=== PATIENT | female | born 2000 | race Caucasian/White ===

== ENCOUNTER 2023-11-30 07:13 | Outpatient (CLI) | payer OTHER, SELFPAY | END 2023-11-30 07:14 | disposition home or self-care (01) | DX: Z00.8 Encounter for other general examination (principal) | CPT/HCPCS: 36415; 99001 ==

== ENCOUNTER 2025-07-15 11:07 | Outpatient (CLI) | payer BC, SELFPAY | END 2025-07-15 11:08 | disposition home or self-care (01) | LOC: AMB 07-18 13:11 | PROVIDERS: Visit Provider Emergency Medicine | DX: R56.9 Unspecified convulsions (principal) | CPT/HCPCS: A0425; A0429 ==

== ENCOUNTER 2025-07-15 11:34 | Emergency (ER) | payer BC, SELFPAY ==
--- OUTSIDE RECORDS SUMMARY | 2025-06-07 08:50 | XMS_ITS | Encounter Summary ---
Author Organization [facility] Address [address] [place] [address] Care Team Providers Care Ornamental Metal Worker Name Role Phone Charito Roman DO Primary Care Provider [phone] Reason for Referral * MRI/CAT Scan (Routine) - Closed Specialty Diagnoses / Procedures Referred By Contac t Referred To Contact Radiology Diagnoses Injury of left knee, initial encounter Procedures MRI Knee WO Contrast Left Clara Rocha MD [address] [place] [address] Referral ID Status Reason Start Date Expiration Date Visits Re quested Visits Authorized [id number] Closed 06/08/2025 10/02/2025 1 1 * Diagnostic (Emergency) - Closed Specialty Diagnoses / Procedures Referred By Contac t Referred To Contact Radiology Diagnoses Chronic pain of left knee Procedures Xray Knee 1 or 2 Views Left Clara Rocha MD [address] [place] [id number] Referral ID Status Reason Start Date Expiration Date Visits Re quested Visits Authorized [id number] Closed 06/07/2025 06/07/2026 1 1 * Diagnostic (Emergency) - Closed Specialty Diagnoses / Procedures Referred By Contac t Referred To Contact Radiology Diagnoses Chronic pain of left knee Procedures Xray Knees Bilateral AP Standing Clara Rocha MD [address] [place] [place], [place] [id number] Referral ID Status Reason Start Date Expiration Date Visits Re quested Visits Authorized [id number] Closed 06/07/2025 06/07/2026 1 1 Reason for Visit * Reason Comments Knee Pain LEFT KNEE PAIN Encounter Details Date Type Department Care Team (Late st Contact Info) Description 06/07/2025 8:50 AM CDT Office Visit [facility] at [facility], Orthopedics [address] [place] [address] Clara Rocha MD [address] [address] Chronic pain of left knee (Primary Dx); Injury of left knee, initial encounter Social History Tobacco Use Types Packs/Day Years Used Date Smoking Tobacco: Never Smokeless Tobacco: Never Tobacco Cessation:Counseling Given: Not Answered Comments:no smokers Alcohol Use Standard Drinks/Week Comments Yes 0 (1 standard drink = 0.6 oz pur e alcohol) Sex and Gender Information Value Date Recorded Sex Assigned at Not on file Gender Identity Not on file Sexual Orientation Not on file documented as of this encounter Last Filed Vital Signs Vital Sign Reading Time Taken Comments Blood Pressure - - Pulse - - Temperature - - Respiratory Rate - - Oxygen Saturation - - Inhaled Oxygen Concentration - - Weight 73.5 kg (162 lb) 06/07/2025 8:30 AM CDT Height 162.6 cm (5' 4) 06/07/2025 8:30 AM CDT Body Mass Index 27.81 06/07/2025 8:30 AM CDT documented in this encounter Patient Instructions * Patient Instructions* Leanna Cheek - 06/07/2025 8:50 AM CDT Sara Polk, On behalf of my care team, I would like to thank you for entrusting us with your care today. It is our goal to provide you and your family with excellent care. You may be receiving an e-mail survey. If we are not meeting the goal of excellent or a rating of 9 or 10, please let us know how we can improve your experience. Once again, thank you. If you would like to comment on the care given to you today please call [phone]. Nurse: JM Zamudio Licensed Batch Freezer Operator: Carla Rocha [email or web address] Please allow 48-72 hours for prescription refill requests. documented in this encounter Progress Notes * Clara Rocha MD - 06/07/2025 8:50 AM CDT Chief Complain: Left knee pain. History of Present Illness: Sara is here today for left knee pain. Sara did sustain an injury on her left knee and has had pain for several weeks. The pain is located lateral. She describesthe symptoms as aching and sharp. Symptoms improve with rest. The symptoms are worse with activity.The knee has not given out or felt unstable. Sara cannot bend and straighten the knee fully. She is active in soccer. Treatment to date has been ice, heat, Tylenol, NSAID's, without significant relief. She is reporting clicking and popping. The patients history form was examined and scanned into the chart. Physical Examination: The patient is an age appropiate well norished, well developed female in no acute distress. Patient is alert and oriented times 3. Left leg shows normal alignment. Skin is normal . Neuro examination is normal. Vascular exam shows normal. Knee Effusion: 2+ Ecchymosis: none Knee ROM: 0 to 100 degrees without subpatellar crepitance. Patella: Patella does track normally. Patellar apprehension test: negative Patellar compression test: negative Tenderness: lateral joint line Stability: Kendal's test: negative Posterior drawer: negative Medial collateral ligament: negative Lateral collateral ligament: negative Kristin's Test: positive with joint line tenderness Sensation: intact to light touch Pulses: normal DP and PT pulses The right knee for comparison shows normal alignment . Skin is intact. Neurovascular exam intact. Capillary refill is less than 3 seconds. Knee is stable on exam in varus/valgus stress and anterior/posterior stress. Range of motion is full. There is no joint line pain or effusion. Strength is 5/5 in flexion and extention. There is no patellar crepitus. Negative patellar apprehension sign. The patella tracks normally X-rays: 4 views of the knee demonstrate no remarkable findings. Assessment: Assessment left knee lateral joint line pain and swelling Plan: Plan MRI discussed and ordered to left knee. Follow up: after MRI * Clara Rocha MD - 06/07/2025 8:50 AM CDT Chief Complain: Left knee pain. History of Present Illness: Sara is here today for left knee pain. Sara did sustain an injury on her left knee and has had pain for several months. The pain is located lateral. She describes the symptoms as aching and sharp. Symptoms improve with rest. The symptoms are worse with activity. The knee has not given out or felt unstable. Sara cannot bend and straighten the knee fully. She is active in soccer. Treatment to date has been ice, heat, Tylenol, NSAID's, without significantrelief. She is reporting clicking and popping. The patients history form was examined and scanned into the chart. Physical Examination: The patient is an age appropiate well norished, well developed female in no acute distress. Patient is alert and oriented times 3. Left leg shows normal alignment. Skin is normal . Neuro examination is normal. Vascular exam shows normal. Knee Effusion: 2+ Ecchymosis: none Knee ROM: 0 to 110 degrees without subpatellar crepitance. Patella: Patella does track normally. Patellar apprehension test: negative Patellar compression test: negative Tenderness: lateral joint line Stability: Kendal's test: negative Posterior drawer: negative Medial collateral ligament: negative Lateral collateral ligament: negative Kristin's Test: positive with joint line tenderness Sensation: intact to light touch Pulses: normal DP and PT pulses The right knee for comparison shows normal alignment . Skin is intact. Neurovascular exam intact. Capillary refill is less than 3 seconds. Knee is stable on exam in varus/valgus stress and anterior/posterior stress. Range of motion is full. There is no joint line pain or effusion. Strength is 5/5 in flexion and extention. There is no patellar crepitus. Negative patellar apprehension sign. The patella tracks normally X-rays: 4 views of the knee demonstrate no remarkable findings. Assessment: Assessment lateral joint line pain and swelling Plan: Plan MRI discussed and ordered to left knee. Follow up: after MRI documented in this encounter Miscellaneous Notes * Addendum Note - Jenae Crockett RN - 06/07/2025 8:50 AM CDTAddended by: JENAE CROCKETT on: 06/08/2025 10:59 AM Modules accepted: Orders documented in this encounter Plan of Treatment Not on file documented as of this encounter Results * MRI Knee WO Contrast Left (07/02/2025 8:10 AM CDT) Anatomical Region Laterality Modality Knee Left Magnetic Resonan ce 07/04/2025 8:27 AM CDT Impressions 07/04/2025 8:31 AM CDT IMPRESSION: 1. Highly equivocal tear of the medial meniscal posterior horn as above 2. Minimal edema of the suprapatellar fat suggesting impingement and question of a thin medial plica 3. Question of subtle patellar chondromalacia as above. Electronically signed by: Kristal Black MD 07/04/2025 08:31 AM CDT RP Narrative 07/04/2025 8:31 AM CDT PROCEDURE: MRI LEFT KNEE WITHOUT CONTRAST TECHNIQUE: Magnetic resonance imaging of the LEFT knee was performed using standard pulse sequences. CPT 70046 HISTORY: eval for lateral meniscus tear COMPARISONS: 02/13/2015 radiography. FINDINGS: ACL: Intact; PCL: Intact MCL: Intact ; Biceps femoris tendon: Intact Fibular collateral ligament: Intact Iliotibial band: Intact Medial meniscus: Mild intrasubstance intermediate signal of the posterior horn could be residual vascularity in a fairly young patient will mild degenerative signal; however there may be a subtle undersurface tear of the posterior horn as suggested on series 6 image 26-this is equivocal meniscus is otherwise intact Lateral meniscus: Intact Extensor mechanism: Intact; minimal anterior subcutaneous edema; minimal edema of the suprapatellar fat suggesting impingement and question of a thin medial plica Joint effusion:Small amount of fluid Popliteal cyst: Collapsed Patellofemoral cartilage:Question subtle thinning of the lower most lateral patellar facet cartilage and maintained trochlear cartilage Medial compartment cartilage: Maintained Lateral compartment cartilage: Maintained Marrow signal: Normal; Muscles:Normal; Imaged sciatic nerve: Normal Procedure Note Kristal Black MD - 07/04/2025 PROCEDURE: MRI LEFT KNEE WITHOUT CONTRAST TECHNIQUE: Magnetic resonance imaging of the LEFT knee was performed usingstandard pulse sequences. CPT 81149 HISTORY: eval for lateral meniscus tear COMPARISONS: 02/13/2015 radiography. FINDINGS: ACL: Intact; PCL: Intact MCL: Intact ; Biceps femoris tendon: Intact Fibular collateral ligament: Intact Iliotibial band: Intact Medial meniscus: Mild intrasubstance intermediate signal of the posteriorhorn could be residual vascularity in a fairly young patient will milddegenerative signal; however there may be a subtle undersurface tear ofthe posterior horn as suggested on series 6 image 26-this is equivocal meniscus is otherwise intact Lateral meniscus: Intact Extensor mechanism: Intact; minimal anterior subcutaneous edema; minimaledema of the suprapatellar fat suggesting impingement and question of athin medial plica Joint effusion:Small amount of fluid Popliteal cyst: Collapsed Patellofemoral cartilage:Question subtle thinning of the lower mostlateral patellar facet cartilage and maintained trochlear cartilage Medial compartment cartilage: Maintained Lateral compartment cartilage: Maintained Marrow signal: Normal; Muscles:Normal; Imaged sciatic nerve: Normal IMPRESSION: IMPRESSION: 1. Highly equivocal tear of the medial meniscal posterior horn as above 2. Minimal edema of the suprapatellar fat suggesting impingement andquestion of a thin medial plica 3. Question of subtle patellar chondromalacia as above. Electronically signed by: Kristal Black MD 07/04/2025 08:31 AM CDT RPWorkstation: [id number] Clara Rocha MD IMG MRI ORDERABLES * Xray Knees Bilateral AP Standing (06/07/2025 9:44 AM CDT) Anatomical Region Laterality Modality Knee Bilateral Radiographic Sharifa ging 06/11/2025 7:56 AM CDT Impressions 06/11/2025 7:57 AM CDT IMPRESSION: 1. No acute fracture. No other acute osseous abnormality. Electronically signed by: Sergio Hazel MD 06/11/2025 07:57 AM CDT RP Narrative 06/11/2025 7:57 AM CDT HISTORY: Pain FINDINGS: 2 views of the left knee and AP standing views of bilateral knees provided. No significant knee joint effusion. Joint compartments are maintained. No acute fracture, dislocation, or other acute osseous abnormality is demonstrated. Procedure Note Sergio Hazel MD - 06/11/2025 HISTORY: Pain FINDINGS: 2 views of the left knee and AP standing views of bilateral kneesprovided. No significant knee joint effusion. Joint compartments aremaintained. No acute fracture, dislocation, or other acute osseous abnormality isdemonstrated. IMPRESSION: 1. No acute fracture. No other acute osseous abnormality. Electronically signed by: Sergio Hazel MD 06/11/2025 07:57 AM CDT RPWorkstation: [id number] Clara Rocha MD IMG DIAGNOSTIC IMAGI NG ORDERABLES * Xray Knee 1 or 2 Views Left (06/07/2025 9:43 AM CDT) Anatomical Region Laterality Modality Knee Left Radiographic Sharifa ging 06/11/2025 7:56 AM CDT Impressions 06/11/2025 7:57 AM CDT IMPRESSION: 1. No acute fracture. No other acute osseous abnormality. Electronically signed by: Sergio Hazel MD 06/11/2025 07:57 AM CDT RP Narrative 06/11/2025 7:57 AM CDT HISTORY: Pain FINDINGS: 2 views of the left knee and AP standing views of bilateral knees provided. No significant knee joint effusion. Joint compartments are maintained. No acute fracture, dislocation, or other acute osseous abnormality is demonstrated. Procedure Note Sergio Hazel MD - 06/11/2025 HISTORY: Pain FINDINGS: 2 views of the left knee and AP standing views of bilateral kneesprovided. No significant knee joint effusion. Joint compartments aremaintained. No acute fracture, dislocation, or other acute osseous abnormality isdemonstrated. IMPRESSION: 1. No acute fracture. No other acute osseous abnormality. Electronically signed by: Sergio Hazel MD 06/11/2025 07:57 AM CDT RPWorkstation: [id number] Clara Rocha MD IMG DIAGNOSTIC IMAGI NG ORDERABLES documented in this encounter Visit Diagnoses Diagnosis Chronic pain of left knee- Primary Injury of left knee, initial encounter Chronic pain of left knee Chronic pain of left knee Injury of left knee, initial encounter documented in this encounter Additional Health Concerns Assessment Noted Time PHQ-9 Depression Total Score: 0 06/07/20 9:47 AM CDT PHQ-2 Depression Total Score: 0 06/07/20 9:47 AM CDT documented as of this encounter Care Teams Ornamental Metal Worker Relationship Specialty Start Date End Date Charito Roman DO [address] [place] [address] PCP - General Family Medicine 05/03/24 documented as of this encounter
--- OUTSIDE RECORDS SUMMARY | 2025-06-07 09:10 | XMS_ITS | Encounter Summary ---
Author Organization [facility] Address [address] [place] [address] Care Team Providers Care Stock Sheets Cleaner Inspector Name Role Phone Charito Roman DO Primary Care Provider [phone] Reason for Visit * Diagnostic (Emergency) - Closed Specialty Diagnoses / Procedures Referred By Parviz garber Referred To Contact Radiology Diagnoses Chronic pain of left knee Procedures Xray Knee 1 or 2 Views Left Clara Rocha MD [address] [address] Referral ID Status Reason Start Date Expiration Date Visits Re quested Visits Authorized [id number] Closed 06/07/2025 06/07/2026 1 1 Encounter Details Date Type Department Care Team (Latest Contact Info) Description 06/07/2025 9:10 AM CDT Ancillary Procedure [facility] [place] [id number] [place] [address] Clara Rocha MD [address] [place] [id number] Chronic pain of left knee Social History Tobacco Use Types Packs/Day Years Used Date Smoking Tobacco: Never Smokeless Tobacco: Never Comments:no smokers Alcohol Use Standard Drinks/Week Comments Yes 0 (1 standard drink = 0.6 oz pur e alcohol) Sex and Gender Information Value Date Recorded Sex Assigned at Not on file Gender Identity Not on file Sexual Orientation Not on file documented as of this encounter Plan of Treatment Not on file documented as of this encounter Procedures Procedure Name Priority Date/Time Associated Diagnosis Comments XRAY KNEE 1 OR 2 VIEWS LEFT STAT 06/07/2025 9:43 AM CDT Chronic pain of left knee documented in this encounter Results * Xray Knee 1 or 2 Views [...] Hazel MD 06/11/2025 07:57 AM CDT RPWorkstation: [id number] Clara Rocha MD IMG DIAGNOSTIC IMAGI NG ORDERABLES documented in this encounter Visit Diagnoses Diagnosis Chronic pain of left knee documented in this encounter Additional Health Concerns Assessment Noted Time PHQ-9 Depression Total Score: 0 06/07/20 9:47 AM CDT PHQ-2 Depression Total Score: 0 06/07/20 9:47 AM CDT documented as of this encounter Care Teams Stock Sheets Cleaner Inspector Relationship Specialty Start Date End Date Charito Roman DO [address] [place] [address] PCP - General Family Medicine 05/03/24 documented as of this encounter
--- OUTSIDE RECORDS SUMMARY | 2025-06-07 09:20 | XMS_ITS | Encounter Summary ---
Author Organization [facility] Address [address] [place] [address] Care Team Providers Care Olericulture Professor Name Role Phone Charito Roman DO Primary Care Provider [phone] Reason for Visit * Diagnostic (Emergency) - Closed Specialty Diagnoses / Procedures Referred By Parviz garber Referred To Contact Radiology Diagnoses Chronic pain of left knee Procedures Xray Knees Bilateral AP Standing Clara Rocha MD [address] [address] Referral ID Status Reason Start Date Expiration Date Visits Re quested Visits Authorized [id number] Closed 06/07/2025 06/07/2026 1 1 Encounter Details Date Type Department Care Team (Latest Contact Info) Description 06/07/2025 9:20 AM CDT Ancillary Procedure [facility] [place] [id number] [place] [address] Clara Rocha MD [address] [id number] Chronic pain of left knee Social History [...] Name Priority Date/Time Associated Diagnosis Comments XRAY KNEES BILATERAL AP STANDING STAT 06/07/2025 9:44 AM CDT Chronic pain of left knee documented in this encounter Results * Xray Knees Bilateral AP Standing (06/07/2025 [...] Hazel MD 06/11/2025 07:57 AM CDT RPWorkstation: [id number] Clara Rocha MD IMG DIAGNOSTIC IMAGI NG ORDERABLES documented in this encounter Visit Diagnoses Diagnosis Chronic pain of left knee documented in this encounter Additional Health Concerns Assessment Noted Time PHQ-9 Depression Total Score: 0 06/07/20 9:47 AM CDT PHQ-2 Depression Total Score: 0 06/07/20 9:47 AM CDT documented as of this encounter Care Teams Olericulture Professor Relationship Specialty Start Date End Date Charito Roman DO [address] [place] [address] PCP - General Family Medicine 05/03/24 documented as of this encounter
--- OUTSIDE RECORDS SUMMARY | 2025-07-02 07:18 | XMS_ITS | Encounter Summary ---
Author Organization [facility] Address [address] [place] [address] Care Team Providers Care Press Tender Smoke Signal Name Role Phone Charito Roman DO Primary Care Provider [phone] Reason for Referral * MRI/CAT Scan (Routine) - Closed Specialty Diagnoses / Procedures Referred By Contac shirlene Referred To Contact Radiology Diagnoses Injury of left knee, initial encounter Procedures MRI Knee WO Contrast Left Clara Rocha MD [address] [place] [address] Referral ID Status Reason Start Date Expiration Date Visits Re quested Visits Authorized [id number] Closed 06/08/2025 10/02/2025 1 1 Reason for Visit * MRI/CAT Scan (Routine) - Closed Specialty Diagnoses / Procedures Referred By Parviz garber Referred To Contact Radiology Diagnoses Injury of left knee, initial encounter Procedures MRI Knee WO Contrast Left Clara Rocha MD [address] [place] [address] Referral ID Status Reason Start Date Expiration Date Visits Re quested Visits Authorized [id number] Closed 06/08/2025 10/02/2025 1 1 Encounter Details Date Type Department Care Team (Latest Contact Info) Description 07/02/2025 7:18 AM CDT - 07/02/2025 11:59 PM CDT Hospital Encounter [facility], Imaging [address] [place] [id number] Clara Rocha MD [address] [address] Injury of left knee, initial encounter Discharge Disposition: Home or Self Care Social History Tobacco Use Types Packs/Day Years [...] Procedure Name Priority Date/Time Associated Diagnosis Comments MRI KNEE WO CONTRAST LEFT Routine 07/02/2025 8:10 AM CDT Injury of left knee, initial encounter documented in this encounter Results * MRI Knee WO [...] was performed using standard pulse sequences. CPT 73316 HISTORY: eval for lateral meniscus tear COMPARISONS: [...] knee was performed usingstandard pulse sequences. CPT 04472 HISTORY: eval for lateral meniscus tear COMPARISONS: [...] Black MD 07/04/2025 08:31 AM CDT RPWorkstation: [id number] Clara Rocha MD IM MRI ORDERABLES documented in this encounter Visit Diagnoses Diagnosis Injury of left knee, initial encounter documented in this encounter Additional Health Concerns Assessment Noted Time PHQ-9 Depression Total Score: 0 06/07/20 9:47 AM CDT PHQ-2 Depression Total Score: 0 06/07/20 9:47 AM CDT documented as of this encounter Care Teams Press Tender Smoke Signal Relationship Specialty Start Date End Date Charito Roman DO [address] [place] [address] PCP - General Family Medicine 05/03/24 documented as of this encounter
--- OUTSIDE RECORDS SUMMARY | 2025-07-05 10:30 | XMS_ITS | Encounter Summary ---
Author Organization [facility] Address [address] [place] [address] Care Team Providers Care Shed Hand Name Role Phone Charito Roman DO Primary Care Provider [phone] Reason for Referral * Physical Therapy (Routine) - Pending Review Specialty Diagnoses / Procedures Referred By Parviz garber Referred To Contact Rehabilitation Diagnoses Chronic pain of left knee Procedures PT and OT Evaluate and Treat Clara Rocha MD [address] [facility] [address] [address] [facility] [address] [place] [address] Referral ID Status Reason Start Date Expiration Date V isits Requested Visits Authorized [id number] Pending Review 07/05/2025 07/05/2026 99 99 Reason for Visit * Reason Comments Knee Pain Left knee pain Encounter Details Date Type Department Care Team (Late st Contact Info) Description 07/05/2025 10:30 AM CDT Office Visit [facility] at [facility], Orthopedics [address] [place], [place] [phone] Clara Rocha MD [address] [facility] [address] [place], [place] [phone] Chronic pain of left knee (Primary Dx) Social History Tobacco Use Types Packs/Day Years [...] Taken Comments Blood Pressure - - Pulse 54 07/05/2025 10:37 AM CDT Temperature - - Respiratory Rate - - Oxygen Saturation 99% 07/05/2025 10:37 AM CDT Inhaled Oxygen Concentration - - Weight 73.5 kg (162 lb) 07/05/2025 10:37 AM CDT Height 162.6 cm (5' 4) 07/05/2025 10:37 AM CDT Body Mass Index 27.81 07/05/2025 10:37 AM CDT documented in this encounter Patient Instructions * Patient Instructions* Prisca Angeles - 07/05/2025 10:30 AM CDT Sara Chacon Jam, On behalf of my care team, I [...] care given to you today please call [phone]. Nurse: JM Zamudio Licensed Disability Benefits Specialist: Carla Rocha [email or web address] Please allow 48-72 hours for prescription refill requests. documented in this encounter Progress Notes * Clara Rocha MD - 07/05/2025 10:30 AM CDT Chief Complaint: Left knee pain History of Present Illness: Sara presents today for followup of left knee. The MRI showed possible tear . I spent 25 minutes with the patient in a face to face conversation. All of the time was spent discussing the results of the MRI and the treatment plan. Assessment and Plan: Left knee possible medial mensicus tear. She does have issues with low back pain and radiculopathy. Physical Therapy discussed and ordered for lumbar spine. Medrol dose packet and flexeril discussed and ordered. She will follow up as needed with me. documented in this encounter Plan of Treatment Not on file documented as of this encounter Visit Diagnoses Diagnosis Chronic pain of left knee- Primary documented in this encounter Additional Health Concerns Assessment Noted Time PHQ-9 Depression Total Score: 0 07/05/20 25 10:33 AM CDT PHQ-2 Depression Total Score: 0 07/05/20 25 10:33 AM CDT documented as of this encounter Care Teams Shed Hand Relationship Specialty Start Date End Date Charito Roman DO [address] [place] [address] PCP - General Family Medicine 05/03/24 documented as of this encounter
[2025-07-15] VITALS (15 sets, daily range): BP systolic 138–149; BP diastolic 81–97; PULSE 51–77; RESP 4–22; TEMP 36.6; O2SAT 98–100; BMI 27.5
--- OUTSIDE RECORDS SUMMARY | 2025-07-15 11:36 | XMS_ITS | Clinical Summary ---
Author Organization [facility] Address [address] [place] [id number] Care Team Providers Care Ingot Caster Name Role Phone Jaya Oakes MD Primary Care Provider Unavaila ble Social History Tobacco Use Types Packs/Day Years Used Date Smoking Tobacco: Never Assessed Inadequate Housing Answer Date Recorded Social Determinants: Housing (Overall Score Help er) 0 05/04/2022 Comments Unknown Sex and Gender Information Value Date Recorded Sex Assigned at Not on file Legal Sex Female 10:37 AM CDT Gender Identity Not on file Sexual Orientation Not on file Plan of Treatment Health Maintenance Due Date Last Done Comments Depression Screening 2013 Chlamydia and Gonorrhea Screening (if sexually active) 2019 Meningococcal Serogroup B Vaccine (2 of 2 - Bexsero SCDM 2-dose series) 12/17/2019 06/16/2019 DTaP/Tdap/Td Vaccine (7 - Td or Tdap) 05/16/2022 05/16/2012, 06/03/2006, 11/06/2002, Additional history exists COVID-19 Vaccine ( season) 2024 11/05/2021, 04/28/2021 Influenza Vaccine (#1) 2025 , 07/31/2020, 12/08/2002, Additional history exists Pneumococcal Vaccine 0-49 Aged Out 2001, 2001, 2001, Additional history exists No longer eligible based on patient's age to complete this topic Hepatitis B Vaccine Completed 11/06/2002, 2001, 2001 Varicella Vaccine Completed 04/23/2010, 05/08/2002 HPV Vaccine Completed 01/10/2014, 0902/2012, 05/16/2012 Hepatitis A Vaccine Completed 01/10/2014, 07/02/201 2 Meningococcal Vaccine Completed 06/16/2019 , 01/10/2014, 07/19/2012, Additional history exists Care Teams Ingot Caster Relationship Specialty Start Date End Date Jaya Oakes MD PCP - General Pediatrics 05/05/22
--- OUTSIDE RECORDS SUMMARY | 2025-07-15 11:36 | XMS_ITS | Clinical Summary ---
Author Organization [facility] Address [address] [place] [address] Care Team Providers Care Coffee Urn Attendant Name Role Phone Pcp, No Primary Care Provider Unavailabl e Allergies No known active allergies Medications No known medications Immunizations Immunization Administration Dates Next Due DTaP 06/03/2006, 1,2001,07/06 DTaP-HIB (TriHIBIT) 11/06/2002 HIB HbOC (HibTITER) 2001,2001,2000 Hepatitis A (Peds) 01/10/2014,05/16/2012 Hepatitis B (Peds) 2001,2001 Hepatitis B, Unspecified 11/06/2002 Human Papilloma Virus Vaccine 01/10/2014, 012,05/16/2012 Inactivated Polio Vaccine 06/03/2006,,2001,07/06 Influenza, IIV3 (Age >=3 years) 12/08/2002,11/06 Influenza, IIV4 (=>6mos) MDV 07/31/2020 MENINGOCOCCAL VACCINE 2 VIAL 2MO-55YO (MENVEO) 06/16/2019,01/10/2014,07/19/2012,05/16 MMR 06/03/2006,05/08/2002 Meningococcal B 06/16/2019 Pneumococcal conj 7-Valent (Prevnar 7) 0 05/08/2002,2001,2001,07/06 Polio Virus, Unspecified 11/06/2002,2001,0 2001 Tdap 05/16/2012 Varicella Vaccine 04/23/2010,05/08/2002 Social History Tobacco Use Types Packs/Day Years Used Date Smoking Tobacco: Never Smokeless Tobacco: Never Tobacco Cessation:Counseling Given: Yes Alcohol Use Standard Drinks/Week Comments Not Currently 0 (1 standard drink = 0.6 oz pur e alcohol) Social Connections Answer Date Recorded Frequency of Communication with Friends and Fami ly Not on file 11/15/2021 Financial Resource Strain Answer Date R ecorded Difficulty of Paying Living Expenses Not on file 11/15/2021 Difficulty of Paying Living Expenses Not on file 11/15/2021 Comments No Sex and Gender Information Value Date Recorded Sex Assigned at Not on file 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 Gender Identity Not on file Sexual Orientation Not on file Obstetrics History Last Filed Vital Signs Vital Sign Reading Time Taken Comments Blood Pressure 130/83 02/16/2022 4:21 PM CDT Pulse 49 02/16/2022 4:21 PM CDT Temperature 36.9 C (98.4 F) 02/16/2022 4:17 PM CDT Respiratory Rate - - Oxygen Saturation 98% 02/16/2022 4:21 PM CDT Inhaled Oxygen Concentration - - Weight 80.5 kg (177 lb 6.4 oz) 02/16/2022 4:17 P M CDT Height 166 cm (5' 5.35) 02/16/2022 4:17 PM CDT Body Mass Index 29.2 02/16/2022 4:17 PM CDT Plan of Treatment Health Maintenance Due Date Last Done Comments Depression screening for age 12+ 2013 HIV for age 15-65 2016 Hepatitis C screening for age 18-79 2019 Pap test for age 21-65 2022 Tetanus booster 05/16/2022 05/16/2012 BMI (ht and wt on same day) for age 18+ 02/16/2023 02/16/2022, 03/05/2021 COVID-19 vaccine series (2023- season) 2024 11/05/2021, 04/28/2021 Influenza Vaccine (#1) 2025 0, 12/08/2002, 11/06/2002 Pneumococcal series for age 6-49 Aged Out 05/08/2002, 2001, 2001, Additional history exists No longer eligible based on patient's age to complete this topic Hepatitis B series for 19+ Completed 11/06, 2001, 2001 HPV series for age 9-26 Completed 01/10/20 14, 07/19/2012, 05/16/2012 Insurance [facility] Care Teams Coffee Urn Attendant Relationship Specialty Start Date End Date Pcp, No . PCP - General 03/05/21
--- OUTSIDE RECORDS SUMMARY | 2025-07-15 11:36 | XMS_ITS | Clinical Summary ---
Author Organization [facility] Address [address] [place] [address] Care Team Providers Care Brine Well Operator Name Role Phone Charito Roman DO Primary Care Provider [phone] Allergies No known active allergies Medications Medication Sig Dispensed Refills Start Date End Date Status methylprednisolone (MEDROL DOSEPACK) 4 mg tablet follow package directions 21 tablet 07/05/2025 Active cyclobenzaprine (FLEXERIL) 10 MG tablet Take 1 tablet (10 mg total) by mouth 3 (three) times a day as needed for Muscle spasms for up to 10 days. 30 tablet 07/05/2025 Active Active Problems Problem Noted Date Diagnosed Date Gastroesophageal reflux dise ase, unspecified whether esophagitis present 04/25/2024 No active medical problems 01/10/2014 Resolved Problems Problem Noted Date Diagnosed Date Resolved Date Left knee injury, initial encounter 02/13/2015 06/11/2016 Hamstring strain, left, init ial encounter - Left 02/13/2015 06/11/2016 Encounters Date Type Department Care Team Description 07/05/2025 10:30 AM CDT Office Visit [facility], Orthopedics [address] [place] [address] Clara Rocha MD Chronic pain of left knee (Primary Dx) 07/02/2025 7:18 AM CDT - 07/02/2025 11:59 PM CDT Hospital Encounter [place] [facility], Imaging [address] [place] [address] Clara Rocha MD Injury of left knee, initial encounter Discharge Disposition: Home or Self Care 06/07/2025 9:20 AM CDT Ancillary Procedure [facility] [address] [phone] Clara Rocha MD Chronic pain of left knee 06/07/2025 9:10 AM CDT Ancillary Procedure [facility] [address] [phone] Clara Rocha MD Chronic pain of left knee 06/07/2025 8:50 AM CDT Office Visit [facility], Orthopedics [address] [place] [phone] Clara Rocha MD Chronic pain of left knee (Primary Dx); Injury of left knee, initial encounter from Last 3 Months Immunizations Name Administration Dates Next Due DTaP (Infanrix) 06/03/2006, 1,2001,07/06 DTaP / HiB 11/06/2002 HPV Quadrivalent 01/10/2014,07/19/2012, 2 Hep B, Unspecified Formulation 11/06/2002 Hepatitis A 2 Dose pediatric/adolescent 01/10/2014,05/16/2012 Hepatitis B, Adolescent or Pediatric 2001, 2001 Hib (Hboc) 2001,2001,2001 Influenza Vaccine Quadrivale nt, 0.5ml Single Dose Syringe 01/10/2014(Deferred: Parental Refusal) Influenza Vaccine Trivalent, Multidose Vial 12/08/2002,11/06/2002 MMR 06/03/2006,05/08/2002 Meningococcal B,OMV(2-dose) (Bexsero) 06/16/2019 Meningococcal Conjugate MCV4O (Menveo) 0 06/16/2019,01/10/2014,07/19/2012,05/16 PfizerRoomActuallyBioNT908 Devices COVID-19 Vac cine mRNA (PF) 30 mcg/0.3mL 11/05/2021 Pneumococcal Conjugate 7-Valent 05/08/20,2001,2001,07/06 Polio, Unspecified Formulation 11/06/2002,2000,2001 Poliovirus Inactivated IPV 06/03/2006 Tdap (Adacel, Boostrix) 05/16/2012 Varicella (Varivax) 04/23/2010,05/08/2002 Family History Medical History Relation Name Comments Asthma Brother Allergies Father Hypertension Maternal Grandfather Cancer Maternal Grandmother melonom a Hypertension Maternal Uncle Leukemia Paternal Grandfather Relation Name Status Comments Brother Father Alive Maternal Grandfather Maternal Grandmother Maternal Uncle Mother Alive Paternal Grandfather Social History Tobacco Use Types Packs/Day Years Used Date Smoking Tobacco: Never Smokeless Tobacco: Never Tobacco Cessation:Counseling Given: Not Answered Comments:no smokers Alcohol Use Standard Drinks/Week Comments Yes 0 (1 standard drink = 0.6 oz pur e alcohol) Sex and Gender Information Value Date Recorded Sex Assigned at Not on file Gender Identity Not on file Sexual Orientation Not on file Last Filed Vital Signs Vital Sign Reading Time Taken Comments Blood Pressure 122/68 09/27/2024 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 Pulse 54 07/05/2025 10:37 AM CDT Temperature 36.6 C (97.9 F) 05/03/2024 8:09 AM CDT Respiratory Rate 18 09/27/2024 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 Oxygen Saturation 99% 07/05/2025 10:37 AM CDT Inhaled Oxygen Concentration - - Weight 73.5 kg (162 lb) 07/05/2025 10:37 AM CDT Height 162.6 cm (5' 4) 07/05/2025 10:37 AM CDT Body Mass Index 27.81 07/05/2025 10:37 AM CDT Plan of Treatment Health Maintenance Due Date Last Done Comments BMI COUNSELING 2019 FOLATE SUPPLEMENTATION 2019 HEP C SCREENING 2019 HIV SCREENING 2019 MENINGITIS B VACCINE (2 of 2 - Bexsero SCDM 2-dose series) 12/17/2019 06/16/2019 Pneumococcal Vaccine: Peds (0-5 Yrs) and At-Risk (6-64 Yrs) (1 of 2 - PCV) 2020 05/08/2002, 2001, 2001, Additional history exists DTap/Tdap/Td (7 - Td or Tdap) 05/16/2022, 06/03/2006, 11/06/2002, Additional history exists COVID-19 Vaccine ( - 2023-2 5 season) 2024 10/14/2023, 11/05/2021, 04/28/2021 CHLAMYDIA SCREENING 03/13/2025 03/13/2024, 4 GONORRHEA SCREENING 03/13/2025 03/13/2024, 4 PREVENTIVE HEALTH EXAM 03/13/2025 4, 06/12/2019, 06/11/2016, Additional history exists INFLUENZA VACCINE (#1) 2025 , 07/31/2020, 12/08/2002, Additional history exists Annual Alcohol Screening 07/05/2026 07/05/2025, 02/14 PAP SMEAR 03/13/2027 03/13/2024 RSV Vaccine Patients 60 Year s and Older (1 - 1-dose 75+ series) 2076 HEPATITIS B VACCINE Completed 11/06/2002, 2001, 2001 HIB VACCINES Completed 11/06/2002, 10/16, 2001, Additional history exists MMR VACCINES Completed 06/03/2006, 05/08/2002 VARICELLA VACCINE Completed 04/23/2010, 05/08/2002 HEPATITIS A VACCINE Completed 01/10/2014, 2 HPV VACCINE Completed 01/10/2014, 02/2012, 05/16/2012 MENINGOCOCCAL VACCINE Completed 06/16/2019 , 01/10/2014, 07/19/2012, Additional history exists RSV Immunization Pediatric Patients under 20 months Aged Out No longer eligi ble based on patient's age to complete this topic Procedures Procedure Name Priority Date/Time Associated Diagnosis Comments MRI KNEE WO CONTRAST LEFT Routine 07/02/2025 8:10 AM CDT Injury of left knee, initial encounter XRAY KNEES BILATERAL AP STANDING STAT 06/07/2025 9:44 AM CDT Chronic pain of left knee XRAY KNEE 1 OR 2 VIEWS LEFT STAT 06/07/2025 9:43 AM CDT Chronic pain of left knee GYNECOLOGIC CYTOLOGY Routine 03/13/2024 10:22 AM CDT Cervical smear, as part of routine gynecological examination CHLAMYDIA/GC NAAT Routine 03/13/2024 10: 22 AM CDT Screening for STD (sexually transmitted disease) from Last 3 Months or Most Recently Relevant to Health Maintenance Results * MRI Knee WO Contrast Left [...] Black MD 07/04/2025 08:31 AM CDT RP [facility] 07/04/2025 8:31 AM CDT PROCEDURE: MRI LEFT KNEE WITHOUT CONTRAST TECHNIQUE: Magnetic resonance imaging of the LEFT knee was performed using standard pulse sequences. CPT 56321 HISTORY: eval for lateral meniscus tear COMPARISONS: [...] knee was performed usingstandard pulse sequences. CPT 71020 HISTORY: eval for lateral meniscus tear COMPARISONS: [...] Black MD 07/04/2025 08:31 AM CDT RPWorkstation: [id number] Clara Rocha MD IMG MRI ORDERABLES * [...] Hazel MD 06/11/2025 07:57 AM CDT RPWorkstation: [id number] [address] [facility] NG ORDERABLES * Xray Knee [...] Hazel MD 06/11/2025 07:57 AM CDT RPWorkstation: [id number] Clara Rocha MD [facility] NG ORDERABLES * Gynecologic Cytology (03/13/2024 10:22 AM CDT) Case Report Gynecologic Cytology Case: [id number] Authorizing Provider: Yonatan Taylor MD Collected: 03/13/2024 1022 Ordering Location: [facility] Received: 03/14/2024 1446 [facility] First Screen: Adebayo You CT (ASCP) Specimen: Thin Prep Pap, Cervix, Thin Prep Pap only 03/16/2024 12:31 PM CDT [facility] Cytology Interpretation : Negative for intraepithelial lesion or malignancy 03/16/2024 12:31 PM CDT [facility] Clinical Information: Z01.419 - Cervical smear, as part of routine gynecological examination [ICD-10-CM] 03/16/2024 12:31 PM CDT [facility] Specimen Adequacy: Satisfactory for evaluation 03/16/2024 12:31 PM CDT [facility] Endocervical Cells: Endocervical/Lopez sformation zone component present 03/16/2024 12:31 PM CDT [facility] PAP Disclaimer This Pap has been evaluated with the aid of the ThinPrep Imaging System. The pap smear is a screening test which is subject to both false negative and false positive results evidenced by data published in the medical literature. Your patient's result should be interpreted in this context, together with the patient's history and clinical findings. 03/16/2024 12:31 PM CDT [facility] Brushing SPECIMEN FROM UTERINE CERVIX / Unknown Collection / Unknown 03/13/2024 10:22 AM CDT 03/14/2024 2:46 PM CDT Yonatan Taylor MD PATHOLOGY/CYTOLOGY O RDERABLES [facility] [address] [place], [place] [address] * Chlamydia/GC NAAT (03/13/2024 10:22 AM CDT) Chlamydia NAAT Negative Negative 03/14/2024 1:37 PM CDT [facility] N.gonorrhoeae , NAAT Negative Negative 03/14/2024 1:37 PM CDT [facility] Swab ENDOCERVICAL STRUCTURE / Unknown Collection / Unknown 03/13/2024 10:22 AM CDT 03/13/2024 11:50 AM CDT Narrative [facility] - 03/14/2024 1:37 PM CDT Testing performed via FDA-approved nucleic acid amplification test (NAAT), with modifications for the following sample sources: pharyngeal and rectal. These modifications were developed and its performance characteristics were determined by [facility]. Sources listed have not been cleared by the FDA and these results are for investigational use only. Yonatan Taylor MD MICROBIOLOGY - [facility] AL ORDERABLES [facility] [address] from Last 3 Months or Most Recently Relevant to Health Maintenance Advance Directives * Full Code (Latest Code Status on File) Date Activated Date Inactivated Comments 05/03/2024 8:47 AM 05/03/2024 11:10 AM * Full Code Date Activated Date Inactivated Comments 05/03/2024 8:01 AM 05/03/2024 8:47 AM Care Teams Brine Well Operator Relationship Specialty Start Date End Date Charito Roman DO [address] [place] [address] PCP - General Family Medicine 05/03/24
--- OUTSIDE RECORDS SUMMARY | 2025-07-15 11:36 | XMS_ITS | Clinical Summary ---
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 Gender Identity Not on file Sexual Orientation Not on file Last Filed Vital Signs Vital Sign Reading Time Taken Comments Blood Pressure - - Pulse - - Temperature - - Respiratory Rate - - Oxygen Saturation - - Inhaled Oxygen Concentration - - Weight 70 kg (154 lb 5.2 oz) 12/31/2016 4:48 PM AGED OR DISABLED CARER Height 164.2 cm (5' 4.65) 12/31/2016 4:48 PM CS T Body Mass Index 25.96 12/31/2016 4:48 PM AGED OR DISABLED CARER Plan of Treatment Health Maintenance Due Date Last Done Comments COVID-19 Vaccine (2023-2 5 season) 2024 Pneumococcal Vaccine: Pediat rics (0 to 5 Years) and At-Risk Patients (6 to 64 Years) Aged Out No longer eligi ble based on patient's age to complete this topic [facility] Care Teams Conventions Reservationist Relationship Specialty Start Date End Date Jaya Oakes MD [address] [place], [place] [id number] PCP - General Pediatrics 12/25/16
--- NOTE | 2025-07-15 11:54 | CRLHL7_ITS ---
For Patients: As a result of the Century Cures Act, medical imaging exams and procedure reports are released immediately into your electronic medical record. You may view this report before your referring provider. If you have questions, please contact your health care provider. Indication: New onset seizure. Technique: CT of the head without contrast. Coronal and sagittal reformats. Bone and soft tissue windows. Comparison: No prior studies available for comparison at this institution. Findings: No acute intracranial hemorrhage or extra-axial collection. No evidence of acute cortical infarction. No mass effect or midline shift. Normal cerebral volume. The ventricles are normal in size, shape and contour. There is normal aragon and white matter differentiation. Partially empty sella. The orbital contents are normal. No calvarial fractures. No lytic or sclerotic osseous lesions within the calvarium or skull base. Scalp and other imaged soft tissue structures are normal. Mastoid air cells are clear. Paranasal sinuses are well aerated. Impression: 1. No acute intracranial abnormality. 2. Partially empty morphology of the sella is nonspecific and could represent a normal variant, but is also seen in association with idiopathic intracranial hypertension. Please note that all CT scans at this facility use dose modulation, iterative reconstruction, and/or weight-based dosing when appropriate to reduce radiation dose to as low as reasonably achievable. Dictated by Ash Watson MD @ 07/15/2025 1:36:41 PM (Electronically Signed)
[2025-07-15 12:13] LABS: HCO3 VBG 25 mmol/L (21-28); Lactate* 2.2 mmol/L (0.5-1.9); PCO2 VBG 43 mmHG (40-50); PO2 VBG 50.7 mmHG (25-47); pH VBG 7.371 (7.32-7.43)
[2025-07-15 12:20] LABS: Hematocrit 39.0 % (33.0-51.0); Hemoglobin* 12.5 gm/dL (12.0-16.0); Immature Granulocytes Abs Auto 0.02 K/uL (0.00-0.30); Immature Granulocytes Pct Auto 0.4 %; Lymphocytes Absolute Auto 1.29 K/uL (0.90-2.90); Mean Corpuscular HGB Conc 32 gm/dL (32-36); Mean Corpuscular Hemoglobin 28 pg (26-34); Mean Corpuscular Volume 88 fL (80-100); RDW Coefficient of Variation % 15.4 % (11.5-15.5); Red Blood Count 4.41 m/uL (4.00-5.20); White Blood Count* 4.50 K/uL (4.50-11.00)
--- NOTE | 2025-07-15 12:20 | ED.GENADULT ---
HPI - General Adult General Time Seen by Provider: 12:00 Date Seen: 07/15/25 Chief complaint: Seizure Stated complaint: seizure Time Seen by Provider: 07/15/25 11:54 Source: patient, EMS, RN notes reviewed and other (Friend she was running with is present.) Mode of arrival: EMS History of Present Illness HPI narrative: This 25-year-old female was brought in by EMS from [facility] where she was running, had possible seizure. She is here with her friend whom is her roommate from the [facility], they live in medicine now, are both [employer] graduates. Patient and her friend were 1 mi into a run in the [facility], were conversational. They were in an area where there was a lot of overhead trees, patient felt like the lights were almost Lore like coming in through the canopy of the trees. After that she felt like she could not see 20 ft in front of her, they slow down, her friend had her arm, the patient started to go down, she caught her and got her to the ground. Patient was rigid, rolling some, seemed to be having noisy breathing in almost difficulty breathing. She noted some movement in the arms. She feels she was witnessing a seizure. Patient has never had seizures before. No trauma, friend was able to get her to the ground. It took awhile of calling for help as she did not have her phone, somebody called 911 and it took a while for them to get there. Police noted that the patient was reportedly postictal and confused. Her friend stated when she finally came to, was trying to get up on her knees in arms, she was definitely confused, did not know who she was at [facility]. They have been friends through [employer] and our current roommates. Patient does note about 2 weeks ago she had a back injury, did get methylprednisolone or prednisone and did get cyclobenzaprine. She originally was having difficulty telling me the events and when exactly this happened. Her friend states her back pain during practice for soccer was about 2 weeks ago, she completed the steroid and the muscle relaxant maybe a week ago. Patient otherwise is healthy, has not been ill. As far as alcohol, she did have 2 beers last night, nothing significant. Related Data Home Medications ?Medication ?Instructions ?Recorded ?Confirmed cyclobenzaprine 10 mg tablet 10 mg PO 3XD 07/15/25 07/15/25 methylprednisolone 4 mg tablets in 0 mg PO 07/15/25 a dose pack Allergies Allergy/AdvReac Type Severity Reaction Status Date / Time No Known Drug Allergies Allergy Verified 07/15/25 11:49 Review of Systems Status of ROS: Reports: 6 or more systems reviewed and unremarkable except as noted in History and below Exam Const: Vital Signs, click to edit/add: Vital Signs - 24 hr 07/15/25 11:44 07/15/25 11:54 07/15/25 12:17 Temperature 98 F Pulse Rate 61 Pulse Rate [Right Pulse Oximeter] 77 Respiratory Rate 18 Blood Pressure Blood Pressure [Ri ght Upper Arm] 139/95 H Pulse Oximetry 100 100 99 Oxygen Delivery Me thod Room Air 07/15/25 12:20 07/15/25 12:30 07/15/25 12:32 Temperature Pulse Rate 61 75 61 Pulse Rate [Right Pulse Oximeter] Respiratory Rate 11 L 15 10 L Blood Pressure 145/97 H 143/88 H Blood Pressure [Ri ght Upper Arm] Pulse Oximetry 100 100 99 Oxygen Delivery Me thod Room Air Room Air 07/15/25 12:45 07/15/25 13:25 07/15/25 13:26 Temperature Pulse Rate 65 51 L 55 L Pulse Rate [Right Pulse Oximeter] Respiratory Rate 6 L 4 L 22 Blood Pressure 144/89 H Blood Pressure [Ri ght Upper Arm] Pulse Oximetry 99 100 99 Oxygen Delivery Me thod Room Air 07/15/25 13:30 07/15/25 13:32 07/15/25 13:45 Temperature Pulse Rate 55 L 56 L 59 L Pulse Rate [Right Pulse Oximeter] Respiratory Rate 7 L 11 L 22 Blood Pressure 149/91 H Blood Pressure [Ri ght Upper Arm] Pulse Oximetry 100 100 100 Oxygen Delivery Me thod Room Air 07/15/25 14:00 07/15/25 14:02 07/15/25 14:15 Temperature Pulse Rate 63 53 L 57 L Pulse Rate [Right Pulse Oximeter] Respiratory Rate 20 10 L 5 L Blood Pressure 138/81 Blood Pressure [Ri ght Upper Arm] Pulse Oximetry 100 100 98 Oxygen Delivery Me thod Room Air This 25-year-old female does seem to be slightly confused, seems to have some difficulty tracking in her recent history a timeline. She is alert though, breathing easily on room air, sclera clear, extraocular muscles intact. Symmetrical facial function. Neck supple, no adenopathy or masses. Lungs are clear, good air entry, no wheezing or crackles, no tachypnea. CV regular rate and rhythm, no murmur, normal S1-S2. Abdomen is soft, nontender, no organomegaly, no rebound or guarding. Upper extremities and lower extremities without any focal deficit at this time. Documenting provider has reviewed patient's vital signs: yes Course Course ED Course: Have reviewed with patient and her friend the differential or difficulty in sorting out syncope with some motor changes that sometimes can be seen versus seizure activity can be difficult. I agree with her friend that certainly sounds like this could have been a seizure. The fact that she was seen almost strobe like affects of the lighting in the canopy that could have induced it. I do believe that cyclobenzaprine is something that complete 10 she ate her lower seizure threshold but would need to review this in the medical literature to confirm this. Will do a head CT scan, appropriate labs. She will be monitored on pulse oximetry and cardiac monitoring to ensure no arrhythmia. We will get an EKG. I do have to agree with her friend that I do suspect potential seizure. Reevaluation(s) Time of Reevaluation #1: 12:33 Reevaluation #1: Patient does seem completely clear now, her friend agrees with with this. She does agree that she felt that her friend was still having difficulty tracking when she 1st got here but no longer is. We discussed that her lactate was mildly elevated at 2.2. They were only 1 mi into a run, this is going to be a 7 mi run. They were still conversational, she does not feel that she had exerted herself enough to have made her lactic acid go up. Time of Reevaluation #2: 14:20 Reevaluation #2: Have reviewed with Eladia as well as her parents on the phone the workup. They understand I have talked to Neurology. He does wonder if it could have been a photo induced seizure. We did review that he had not seen Flexeril or cyclobenzaprine as a in etiology for seizures. He does recommend outpatient workup with MRI brain with and without contrast and EEG. Her dad is going to help get this arranged. We did specifically review no drinking and no driving for 3 months. Consultations Consultation #1: Did speak with neurologist Dr. Romero. We went over patient's case. We would consider this a first-time seizure, possibly photosensitivity induced. He would not recommend medications. She needs outpatient follow-up with workup with brain MRI with and without contrast in routine EEG monitoring. He would recommend no alcohol. She is not to drive for 3 months. Time: 13:59 Vital Signs Vital signs: Initial Vital Signs Temperature 98 F 07/15/25 11:44 Temperature Source Temporal Artery Scan 07/15/25 11:44 Pulse Rate 77 07/15/25 11:44 Pulse Rhythm Regular 07/15/25 11:44 Pulse Strength 3+ Normal 07/15/25 11:44 Respiratory Rate 18 07/15/25 11:44 Blood Pressure 139/95 H 07/15/25 11:44 Blood Pressure Mean 109 H 07/15/25 11:44 Blood Pressure Position Sitting 07/15/25 11:44 Pulse Oximetry 100 07/15/25 11:44 Oxygen Delivery Method Room Air 07/15/25 11:44 Vital Signs Temperature 98 F 07/15/25 11:44 Pulse Rate 77 07/15/25 11:44 Respiratory Rate 18 07/15/25 11:44 Blood Pressure 139/95 H 07/15/25 11:44 Pulse Oximetry 100 07/15/25 11:44 Oxygen Delivery Method Room Air 07/15/25 11:44 Temperature 98 F 07/15/25 11:44 Pulse Rate 57 L 07/15/25 14:15 Respiratory Rate 5 L 07/15/25 14:15 Blood Pressure 138/81 07/15/25 14:02 Pulse Oximetry 98 07/15/25 14:15 Oxygen Delivery Method Room Air 07/15/25 14:02 Medical Decision Making Lab Data Lab results reviewed: Yes I reviewed the patient's lab results Labs: Lab Results 07/15/25 07/15/25 Range/Units 11:55 13:11 WBC 4.50 (4.50-11.00) K/uL RBC 4.41 (4.00-5.20) m/uL Hgb 12.5 (12.0-16.0) gm/dL Hct 39.0 (33.0-51.0) % MCV 88 (80-100) fL MCH 28 (26-34) pg MCHC 32 (32-36) gm/dL RDW Coeff of Kyle 15.4 (11.5-15.5) % Plt Count 240 (140-440) K/uL Neut % (Auto) 58.0 (42.0-72.0) % Lymph % (Auto) 28.7 (20-44) % Turner % (Auto) 10.7 (0.0-11.0) % Eos % (Auto) 1.3 (0.0-7.0) % Baso % (Auto) 0.9 (0.0-3.0) % Neut # (Auto) 2.61 (1.7-7.0) K/uL Lymph # (Auto) 1.29 (0.90-2.90) K/uL Turner # (Auto) 0.50 (0.00-0.90) K/UL Eos # (Auto) 0.06 (0.00-0.50) K/uL Baso # (Auto) 0.04 (0.00-0.30) K/uL Abs Immat Gran (auto) 0.02 (0.00-0.30) K/uL Imm/Tot Granulo (auto) 0.4 % VBG pH 7.371 (7.32-7.43) VBG pCO2 43 (40-50) mmHG VBG pO2 50.7 H (25-47) mmHG VBG HCO3 25 (21-28) mmol/L Sodium 135 (135-149) mmol/L Potassium 3.9 (3.6-5.1) mmol/L Chloride 105 (96-114) mmol/L Carbon Dioxide 25 (20-32) mmol/L Anion Gap 5 L (7-15) mEq/L BUN 15 (5-24) mg/dL Creatinine 0.7 (0.5-1.5) mg/dL Estimated Creat Clear 107.01 Estimated GFR 124 ml/min Glucose 114 (60-115) mg/dL Lactate 2.2 H (0.5-1.9) mmol/L Calcium 9.1 (8.4-10.6) mg/dL Magnesium 1.8 (1.5-2.6) mg/dL Total Bilirubin 0.2 (0.1-1.5) mg/dL Direct Bilirubin 0.2 (0.0-0.5) mg/dL AST 32 (12-35) U/L ALT 27 (4-35) U/L Alkaline Phosphatase 49 (40-150) U/L Troponin I < 0.01 (0.01-0.04) ng/mL C-Reactive Protein < 0.5 L (0.5-1.0) mg/dL NT-Pro-B Natriuret Pep 30 (See Note) pg/mL Total Protein 7.1 (6.0-8.3) g/dL Albumin 4.2 (3.3-5.0) g/dL HCG, Qual Negative (Negative) Urine Opiates Screen Negative (Negative) Ur Oxycodone Screen Negative (Negative) Urine Methadone Screen Negative (Negative) Ur Barbiturates Screen Negative (Negative) U Tricyclic Antidepress Negative (Negative) Ur Phencyclidine Scrn Negative (Negative) Ur Amphetamines Screen Negative (Negative) U Methamphetamines Scrn Negative (Negative) U Benzodiazepines Scrn Negative (Negative) Urine Cocaine Screen Negative (Negative) U Marijuana (THC) Screen Negative (Negative) Ur Drug Screen Comment See Note Imaging Data CT scan - head: Attestation: I have reviewed the pertinent imaging results. My impression: I did visualize her head CT, certainly do not see any evidence of a mass, bleed or traumatic change. Will await formal radiology over-read. Radiologist's impression: Patient: CURT ASCENCIO Facility:?[facility] Patient ID:?[id number] Site Patient ID:?[id number]. Site :?[id number] Study:?CT-Head W/O-07/15/2025 1:06:56 PM Ordering Physician:?Solo Willams Final Report: Indication: New onset seizure. Technique: CT of the head without contrast. Coronal and sagittal reformats. Bone and soft tissue windows. Comparison: No prior studies available for comparison at this institution. Findings: No acute intracranial hemorrhage or extra-axial collection. No evidence of acute cortical infarction. No mass effect or midline shift. Normal cerebral volume. The ventricles are normal in size, shape and contour. There is normal aragon and white matter differentiation. Partially empty sella. The orbital contents are normal. No calvarial fractures. No lytic or sclerotic osseous lesions within the calvarium or skull base. Scalp and other imaged soft tissue structures are normal. Mastoid air cells are clear. Paranasal sinuses are well aerated. Impression: 1. No acute intracranial abnormality. 2. Partially empty morphology of the sella is nonspecific and could represent a normal variant, but is also seen in association with idiopathic intracranial hypertension. Please note that all CT scans at this facility use dose modulation, iterative reconstruction, and/or weight-based dosing when appropriate to reduce radiation dose to as low as reasonably achievable. Dictated by Ash Watson MD @ 07/15/2025 1:36:41 PM (Electronic Signature) ECG Data Attestation: I personally reviewed and interpreted this ECG as follows: (Sinus bradycardia with sinus arrhythmia, 51 beats per minute. Incomplete right bundle branch block.) Prior ECG tracings: not available for review Discharge Plan Discharge Clinical Impression: New onset seizure Patient Disposition: Home, Self-Care Condition: Stable Instructions: New-Onset Seizure in Adults (ED) Additional Instructions: Your not to drive for 3 months. It is recommended to avoid alcohol at this time. You should not swim or being a body of water alone at this time. You will need to follow up with Neurology and have a brain MRI with and without contrast, EEG monitoring done. It is possible that your primary care provider can order some of this testing outpatient or they may prefer that you have this all done through Neurology. If you have any further concerns, any further spells that are concerning to that might be seizure or, need to be re-evaluated. Prescriptions: No Action cyclobenzaprine 10 mg tablet 10 mg PO 3XD methylprednisolone 4 mg tablets,dose pack 0 mg PO Follow Up/Referrals: Provider,Not a Local [Primary Care Provider, Family Practice] Stand Alone Forms: [employer] Info Instructions Procedures ABG Interpretation ABG Results: 07/15/25 11:55 VBG pH 7.371 VBG pCO2 43 VBG pO2 50.7 H VBG HCO3 25
[2025-07-15 12:21] LABS: Slide Review Reflex No
[2025-07-15 12:36] LABS: Albumin* 4.2 g/dL (3.3-5.0); Chloride* 105 mmol/L (96-114); Potassium* 3.9 mmol/L (3.6-5.1); Sodium* 135 mmol/L (135-149)
[2025-07-15 12:38] LABS: Blood Urea Nitrogen* 15 mg/dL (5-24); Creatinine* 0.7 mg/dL (0.5-1.5); Est. Creatinine Clearance* 107.01; Estimated Glomerular Filt Rate 124 ml/min
[2025-07-15 12:39] LABS: Alanine Aminotransferase* 27 U/L (4-35); Alkaline Phosphatase* 49 U/L (40-150); Anion Gap 5 mEq/L (7-15); Aspartate Amino Transferase* 32 U/L (12-35); Bilirubin Direct* 0.2 mg/dL (0.0-0.5); Bilirubin Total* 0.2 mg/dL (0.1-1.5); Calcium* 9.1 mg/dL (8.4-10.6); Carbon Dioxide* 25 mmol/L (20-32); Glucose* 114 mg/dL (60-115); Total Protein* 7.1 g/dL (6.0-8.3)
[2025-07-15 12:45] LABS: HCG Qualitative Serum* Negative (Negative)
[2025-07-15 12:55] LABS: NT Pro B Type NatriureticPept* 30 pg/mL (See Note)
[2025-07-15 13:27] LABS: Cannabinoid Screen Urine Negative (Negative); Methamphetamines Screen Urine Negative (Negative); Tricyclic Antidepressant Urine Negative (Negative)
== END 2025-07-15 14:43 | disposition home or self-care (01) ==
PROVIDERS: Emergency Provider Family Medicine
DX: R56.9 Unspecified convulsions (principal)
CPT/HCPCS: 36415; 70450; 80053; 80306; 82248; 82803; 83605; 83735; 83880; 84484; 84703; 85025; 86140; 93005; 94761; 99284; 99285